=== PATIENT | male | born 1960 | race African-American/Black ===

== ENCOUNTER 2019-05-01 14:25 | Emergency (ER) | payer SELFPAY ==
[~2019-05-01] VITALS: Ht 180.3 cm; Wt 90.0 kg
[2019-05-01] MEDS ORDERED: KETOROLAC 60MG/2ML VIAL IM ONE (15:15)
[2019-05-01 15:27] VITALS: BP 116/82
== END 2019-05-01 17:38 | disposition home or self-care (01) ==
LOC: ER 14:25
DX: M25.511 Pain in right shoulder (principal); M25.551 Pain in right hip; M79.604 Pain in right leg; M79.601 Pain in right arm; G89.11 Acute pain due to trauma; I10 Essential (primary) hypertension; V43.52XA Car driver injured in collision with other type car in traffic accident, initial encounter; Y93.89 Activity, other specified; Y92.410 Unspecified street and highway as the place of occurrence of the external cause
CPT/HCPCS: 73030; 73502; 96372; 99283; J1885